=== PATIENT | male | born 1965 | race Caucasian/White ===

== ENCOUNTER 2020-08-30 09:39 | Day surgery (SDC) | payer OTHER, SELFPAY ==
[2020-08-18 07:38] VITALS: BMI 29.2
[2020-08-30 09:59] VITALS: BP 136/92; PULSE 90; RESP 16; TEMP 37.2; O2SAT 99; BMI 29.1
[2020-08-30] MEDS: Lactated Ringers 1,000 ML 100 ML IV (10:14)
--- NOTE | 2020-08-30 10:24 | PCM.HP.BLA ---
Problem List (1) Acid reflux Status: Acute Qualifiers: (2) Constipation Status: Acute Qualifiers: History and Physical Date of Admission: 08/30/20 Intake Visit Reasons: INGUINAL HERNIA Nurse Anesthesia Program Director Required: No Is patient in pain?: No (tenderness- Left groin) Allergies No Known Allergies Allergy (Verified 08/18/20 07:40) Medications Lisinopril [Zestril] 40 mg PO DAILY 07/10/15 [History Confirmed 08/18/20] Omeprazole [Prilosec] 20 mg PO DAILY 07/10/15 [History Confirmed 08/18/20] fenofibrate 54 mg tablet 54 mg PO DAILY tab 08/18/20 [History Confirmed 08/18/20] rosuvastatin 10 mg tablet 10 mg PO DAILY tab 08/18/20 [History Confirmed 08/18/20] PFSH Medical History (Updated 08/18/20 @ 07:[address] Reggie Saldaña MD) Left inguinal hernia (Acute) Acid reflux (Acute) Constipation (Acute) Hypertension (Chronic) Arthritis (Acute) Back problem (Acute) Surgical History (Updated 08/18/20 @ 07:37 by Nel Blair) Hx of lithotripsy (Acute) Hx of appendectomy (Acute) Family History (Updated 08/18/20 @ 07:38 by Nel Blair) Mother Breast cancer Social History (Updated 08/18/20 @ 07:[address] Reggie Saldaña MD) Smoking Status: Unknown if ever smoked second hand exposure: No alcohol intake: current alcohol intake frequency: holidays/special occasions only substance use type: does not use caffeine: Yes HPI HPI HPI: PRITESH MORENO, is a 55 M who presents to the office today for surgical consultation regarding a left inguinal hernia. The patient is referred by his primary care physician Dr. Luis Bolton and a written copy my surgical consult recommendations will return to him. He noticed a bulge in the left groin mid summer. He does do heavy lifting and straining. He is always been able to reduce the area. He does have chronic reflux disease. He thinks he had an upper endoscopy 14 years ago. He has been on proton pump inhibitor for an extensive period of time at least 7 years perhaps as long as 10 years. He thinks he had a Cologuard test year and a half ago that was negative. He has never had a colonoscopy. He denies family history of colon cancer. He denies nocturia. He has had some intermittent constipation. No bright red blood per rectum or melena. No unexpected weight loss. He has been associated with some people of had COVID-19 but he states that he has been from them and he has not had it himself. He denies fever or chills or cough or shortness of breath or DVT He has had previous abdominal surgery was which is a laparoscopic appendectomy for severe appendicitis but he does not believe it was ruptured. He thinks that was about 3 years ago. HPI HPI HPI: PRITESH MORENO, is a 55 M who presents to the office today for ROS General General: No weight change, appetite, fatigue, colon cancer or breast cancer HEENT HEENT: No difficulty swallowing, eye injury, eye surgery, swollen glands or hoarseness Endo Endocrine: No thyroid disease, diabetes mellitus, thyroid cancer, Hair loss, heat intolerance or cold intolerance Skin Skin: Yes changing moles; no rash Musc Musculoskeletal: Yes back problems and arthritis; no rheumatoid arthritis, gout or joint pain Cardio Cardiovascular: Yes high blood pressure; no murmur, pacemaker, heart disease, atrial fibrillation, heart attack, heart stent, palpitations, shortness of breat with exertion or chest pain Psych Psychiatric: No depression, anxiety or hearing voices Resp Respiratory: No shortness of breath, No sleep apnea, No cough, No COPD, No asthma, No emphysema, No wheezing Gastro Gastrointestinal: No abdominal pain, No nausea or vomiting, No diarrhea, Yes constipation, No blood in stool, Yes acid reflux, No hemorrhoids, No ulcers, No gallbladder problem, No black,tarry stools Gil Hematologic: No blood thinners, No blood disorders, No bleeding, No anemia, No blood clots Exam Const General: cooperative, healthy appearing, comfortable Nutritional Appearance: average body habitus Orientation: alert, awake [facility] Head: normal to inspection Eyes General: appearance normal, both eyes and all related structures Chest Chest palpation & inspection: normal inspection of the chest Resp Effort & Inspection: normal respiratory effort Auscultation: clear to auscultation bilaterally Cardio Rate: regular rate Rhythm: regular rhythm Heart Sounds: no murmurs GI Palpation: soft, no hepatosplenomegaly Other: Well-healed umbilical incision. No hepatosplenomegaly. Normal bowel sounds. Other: Testicles are descended bilaterally. Very slight given the right groin. Obvious left inguinal hernia but still reducible. Musc Cervical Spine: normal cervical lordosis Skin General: no rashes or lesions noted Neuro Cognition: normal cognition Extrem General: no calf tenderness Psych Affect: normal affect Assessment & Plan Problems 1. Left inguinal hernia K40.90 2. Gastroesophageal reflux disease, unspecified whether esophagitis present K21.9 3. Constipation, unspecified constipation type K59.00 Plan The patient has had chronic gastroesophageal reflux disease and is on chronic omeprazole therapy. He has never had a screening colonoscopy. I suggest to him that we consider a esophagogastroduodenoscopy with possible biopsy looking for potential for Gill's esophagus. The patient also has interest in coming off his proton pump inhibitor. He is aware that there is a surgical procedure to assist with this and I did clarify for him that that is a procedure that I can accomplish for him laparoscopically but that it would require some additional testing. I also recommend to him at least 1 screening colonoscopy with possible biopsy or polypectomy as indicated. He does believe that he would like to pursue that endoscopic testing. I discussed with him surgical treatment options for his left inguinal hernia. He is in good health and does vigorous work. I propose for him a laparoscopic left inguinal hernia repair with mesh. I have described the technique, benefit, risk and alternatives. He has had an opportunity to ask and have questions answered. He is comfortable is had an opportunity to ask and have questions answered. We will schedule and proceed at his discretion. He is well aware of COVID-19. He is aware that currently the [facility] still permitting outpatient procedures. I very much appreciate the kind opportunity of assisting with her surgical care Copy: Dr. Luis Saldaña M.D., F.A.C.S. Coding Level of Care Code 63918 Diagnoses Left inguinal hernia K40.90 Gastroesophageal reflux disease, unspecified whether esophagitis present K21.9 ??Esophagitis presence: esophagitis presence not specified Constipation, unspecified constipation type K59.00 ??Constipation type: unspecified constipation type I have re-examined the patient. There are no clinical changes since date of exam. Procedure Criteria Procedure Type: Elective COVID Risk Discussion: The surgeon/proceduralist and patient have discussed in detail the risk of exposure to and/or potential harm posed by the COVID-19 virus with having a surgery/procedure at this time versus the risk of delaying the surgery/procedure. It is not possible to know either the risk of delaying the surgery or procedure or chance of getting an infection with perfect accuracy, but a joint decision was made between the patient and the surgeon/proceduralist to proceed at this time with the scheduled surgery/procedure as indicated on the consent form.
--- NOTE | 2020-08-30 11:00 | COLBX_PTH ---
PATIENT: PRITESH MORENO LOC: EN U#:[id number] AGE/SX: 55/M ROOM: RE08/30/[address]: Dr. Reggie Saldaña MD : 1965 BED: DIS: 08/30/2020 SPEC #: [id number] RECD: 08/30/20 11:41 STATUS: DARIUS SANAM #: [id number] CHANELL: 08/30/20 11:[address]: Reggie Saldaña DEPT: SURGICAL PATHOLOGY RECD BY: Darrel Mcclain ENTERED: 08/30/20 12:14 SP TYPE: COLON BX OTHR DR: Dr. Luis Bolton MD Tissues: A - Gastric mucous membrane B - Gastric mucous membrane C - Gastric mucous membrane D - Esophagus, NOS Procedures: Special Stain Group II Surgery Specimen Level IV Alcian Blue/PAS (control) HEADER OPERATION: Colonoscopy, EGD ([facility] [place] PRE-OP DIAGNOSIS: Left inguinal hernia, GERD, esophagitis, constipation TISSUE SUBMITTED: A - Antrum biopsy for H. pylori and path, B - Gastric polyps biopsy #1, C - Gastric polyp #2, D - Distal esophagus biopsy MICROSCOPIC DIAGNOSIS A. Gastric antrum, biopsy: Chronic gastritis. See comment. B. Gastric polyp #1, biopsy: Fundic gland polyp. C. Gastric polyp #2, biopsy: Fundic gland polyp. D. Distal esophagus, biopsy: Gastroesophageal junctional mucosa with mild chronic inflammation. No evidence of intestinal metaplasia. See comment. AM:javier 08/31/20 COMMENT A. The results of immunohistochemistry for Helicobacter pylori will be reported separately ([id number]). D. Alcian blue/PAS stain with matched control supports the above diagnosis. MICROSCOPIC DESCRIPTION Slides are reviewed. GROSS DESCRIPTION A - Received in fixative is one container labeled with the patient's name and designated antrum biopsy. The specimen consists of two irregular fragments of light cota soft tissue that in aggregate measure 0.5 x 0.5 x 0.1 cm. The specimen is totally submitted in one cassette. B - Received in fixative is one container labeled with the patient's name and designated gastric polyp biopsy. The specimen consists of one irregular fragment of light cota soft tissue that measures 0.5 x 0.5 x 0.1 cm. The specimen is totally submitted in one cassette. C - Received in fixative is one container labeled with the patient's name and designated gastric polyp #2. The specimen consists of one irregular fragment of light cota soft tissue that measures 0.5 x 0.3 x 0.1 cm. The specimen is totally submitted in one cassette. D - Received in fixative is one container labeled with the patient's name and designated distal esophagus biopsy. The specimen consists of multiple irregular fragments of light cota soft tissue that in aggregate measure 1 x 0.2 x 0.1 cm. The specimen is totally submitted in one cassette. / AM:javier 08/30/20 TC:3 CPT: 33856 x4, 72206
--- NOTE | 2020-08-30 11:00 | IMM_PTH ---
PATIENT: PRITESH MORENO LOC: EN U#:[id number] AGE/SX: 55/M ROOM: RE08/30/[address]: Dr. Reggie Saldaña MD : 1965 BED: DIS: 08/30/2020 SPEC #: [id number] RECD: 08/30/20 12:34 STATUS: DARIUS REChucho #: [id number] CHANELL: 08/30/20 11:[address]: Reggie Saldaña DEPT: IMMUNOHISTOCHEMISTRY RECD BY: Kellie Bonilla ENTERED: 08/30/20 12:34 SP TYPE: IMMUNO OTHR DR: Dr. Luis Bolton MD Tissues: A - Stomach, NOS Procedures: H Pylori (initial) PHYSICIAN & INSTITUTION [place] [id number] SPECIMEN INFORMATION: Tissue Source: A - Antrum biopsy Clinical Info: Left inguinal hernia; GERD; esophagitis; constipation Specimen Number: [id number] CPT code: 85640 METHODOLOGY: Deparaffinized sections of prefer/formalin-fixed tissue or PAP/DQ stained slides are incubated with monoclonal/polyclonal antibodies/oligonucleotide probes. Localization is made via biotin free immunoperoxidase method. Appropriate controls are performed and reacted as expected. Results on target cell population are indicated in the following table: RESULTS: ANTIBODY / CLONE RESULT Block A H Pylori (polyclonal) negative These tests were developed and their performance characteristics determined by [facility]. They may not have been cleared or approved by the U.S. Food and Drug Administration. The FDA has determined that such clearance or approval is not necessary. INTERPRETATION: A. Antrum, biopsy: Negative for Helicobacter pylori organisms. AM:javier 08/31/20
[2020-08-30 11:33] VITALS: BP 133/103; BP 163/95; PULSE 89; RESP 16; TEMP 36.1; O2SAT 97
--- NOTE | 2020-08-30 11:38 | OP.EGD_ITS ---
Patient Name: Gregorio Ayon Procedure Date: 08/30/2020 11:01 AM Date of : 1965 Age: 55 Procedure: Upper GI endoscopy Indications: Suspected gastro-esophageal reflux disease Providers: Reggie Saldaña MD Referring MD: Luis Bolton Medicines: See the Anesthesia note for documentation of the administered medications Complications: No immediate complications. Procedure: Pre-Anesthesia Assessment: - Prior to the procedure, a History and Physical was performed, and patient medications and allergies were reviewed. The patient's tolerance of previous anesthesia was also reviewed. The risks and benefits of the procedure and the sedation options and risks were discussed with the patient. All questions were answered, and informed consent was obtained. Prior Anticoagulants: The patient has taken no previous anticoagulant or antiplatelet agents. ASA Grade Assessment: II - A patient with mild systemic disease. After reviewing the risks and benefits, the patient was deemed in satisfactory condition to undergo the procedure. After obtaining informed consent, the endoscope was passed under direct vision. Throughout the procedure, the patient's blood pressure, pulse, and oxygen saturations were monitored continuously. The Endoscope was introduced through the mouth, and advanced to the second part of duodenum. The upper GI endoscopy was accomplished without difficulty. The patient tolerated the procedure well. Scope In: 11:10:48 AM Scope Out: 11:17:55 AM Total Procedure Duration Time 0 hours 7 minutes 7 seconds Findings: A small hiatal hernia was present. LA Grade A (one or more mucosal breaks less than 5 mm, not extending between tops of 2 mucosal folds) esophagitis with no bleeding was found 41 cm from the incisors. Biopsies were taken with a cold forceps for histology. Multiple pedunculated and sessile polyps with no bleeding and no stigmata of recent bleeding were found in the stomach. The polyp was removed with a cold biopsy forceps. Resection was complete, but the polyp tissue was only partially retrieved. Diffuse mildly erythematous mucosa without bleeding was found in the gastric antrum. Biopsies were taken with a cold forceps for histology. The examined duodenum was normal. Impression: - Small hiatal hernia. - LA Grade A reflux esophagitis. Biopsied. - Multiple gastric polyps, multiple sizes, some larger than normal. Two biopsied, One pedunculated and one slightly inflamed. - Erythematous mucosa in the antrum. Biopsied. - Normal examined duodenum. Recommendation: - Discharge patient to home. - Resume previous diet. - Continue present medications. - Telephone my office for pathology results in 1 week. Procedure Code(s): --- Professional --- 76359, Esophagogastroduodenoscopy, flexible, transoral; with biopsy, single or multiple Diagnosis Code(s): --- Professional --- K44.9, Diaphragmatic hernia without obstruction or gangrene K21.0, Gastro-esophageal reflux disease with esophagitis K31.7, Polyp of stomach and duodenum K31.89, Other diseases of stomach and duodenum CPT copyright 2017 [employer]. All rights reserved. The codes documented in this report are preliminary and upon trim carpenter review may be revised to meet current compliance requirements. Reggie Saldaña MD 08/30/2020 11:37:51 AM This report has been signed electronically. Number of Addenda: 0 Note Initiated On: 08/30/2020 11:01 AM
--- NOTE | 2020-08-30 11:38 | OP.CCLET_ITS ---
08/30/2020 Luis Bolton Re : Upper GI endoscopy procedure for Gregorio Ayon Dear Hoang This procedure was performed on Sunday, August 30, 2020. My impressions and recommendations are as follows: Impressions : - Small hiatal hernia. - LA Grade A reflux esophagitis. Biopsied. - Multiple gastric polyps, multiple sizes, some larger than normal. Two biopsied, One pedunculated and one slightly inflamed. - Erythematous mucosa in the antrum. Biopsied. - Normal examined duodenum. Recommendations : - Discharge patient to home. - Resume previous diet. - Continue present medications. - Telephone my office for pathology results in 1 week. My findings are described in the full procedure note, which is enclosed. If I can be of further assistance, please feel free to contact me at Doctor phone number(s): Work: . Sincerely, Reggie Saldaña MD 08/30/2020 11:37:51 AM This report has been signed electronically.
[2020-08-30 11:40] VITALS: BP 107/64; BP 163/95; PULSE 79; RESP 14; O2SAT 98
--- NOTE | 2020-08-30 11:40 | OP.COLON_ITS ---
Patient Name: Gregorio Ayon Procedure Date: 08/30/2020 11:18 AM Date of : 1965 Age: 55 Procedure: Colonoscopy Indications: Constipation Providers: Reggie Saldaña MD Referring MD: Luis Bolton Medicines: See the Anesthesia note for documentation of the administered medications Patient Profile: Last Colonoscopy: none. The patient's first colonoscopy is today. Complications: No immediate complications. Procedure: Pre-Anesthesia Assessment: - Prior to the procedure, a History and Physical was performed, and patient medications and allergies were reviewed. The patient's tolerance of previous anesthesia was also reviewed. The risks and benefits of the procedure and the sedation options and risks were discussed with the patient. All questions were answered, and informed consent was obtained. Prior Anticoagulants: The patient has taken no previous anticoagulant or antiplatelet agents. ASA Grade Assessment: II - A patient with mild systemic disease. After reviewing the risks and benefits, the patient was deemed in satisfactory condition to undergo the procedure. After I obtained informed consent, the scope was passed under direct vision. Throughout the procedure, the patient's blood pressure, pulse, and oxygen saturations were monitored continuously. The adult colonoscope was introduced through the anus and advanced to the cecum, identified by appendiceal orifice and ileocecal valve. The colonoscopy was performed without difficulty. The patient tolerated the procedure well. The quality of the bowel preparation was good. The ileocecal valve and the appendiceal orifice were photographed. Scope In: 11:19:52 AM Scope Withdrawal Time 0 hours 6 minutes 5 seconds Scope Out: 11:28:35 AM Total Procedure Duration Time 0 hours 8 minutes 43 seconds Findings: The digital rectal exam findings include non-thrombosed internal hemorrhoids, internal hemorrhoids that prolapse with straining, but spontaneously regress to the resting position (Grade II) and enlarged prostate. A few diverticula were found in the sigmoid colon. The exam was otherwise without abnormality. Impression: - Non-thrombosed internal hemorrhoids, internal hemorrhoids that prolapse with straining, but spontaneously regress to the resting position (Grade II) and enlarged prostate found on digital rectal exam. - Diverticulosis in the sigmoid colon. - The examination was otherwise normal. - No specimens collected. Recommendation: - Discharge patient to home. - Resume previous diet. - Continue present medications. - Repeat colonoscopy in 10 years for screening purposes. Procedure Code(s): --- Professional --- 80370, Colonoscopy, flexible; diagnostic, including collection of specimen(s) by brushing or washing, when performed (separate procedure) Diagnosis Code(s): --- Professional --- K64.1, Second degree hemorrhoids K59.00, Constipation, unspecified N40.0, Benign prostatic hyperplasia without lower urinary tract symptoms K57.30, Diverticulosis of large intestine without perforation or abscess without bleeding CPT copyright 2017 [employer]. All rights reserved. The codes documented in this report are preliminary and upon small animal veterinarian review may be revised to meet current compliance requirements. Reggie Saldaña MD 08/30/2020 11:40:13 AM This report has been signed electronically. Number of Addenda: 0 Note Initiated On: 08/30/2020 11:18 AM
--- NOTE | 2020-08-30 11:40 | OP.CCLET_ITS ---
08/30/2020 Luis Bolton Re : Colonoscopy procedure for Gregorio Ayon Dear Hoang This procedure was performed on Sunday, August 30, 2020. My impressions and recommendations are as follows: Impressions : - Non-thrombosed internal hemorrhoids, internal hemorrhoids that prolapse with straining, but spontaneously regress to the resting position (Grade II) and enlarged prostate found on digital rectal exam. - Diverticulosis in the sigmoid colon. - The examination was otherwise normal. - No specimens collected. Recommendations : - Discharge patient to home. - Resume previous diet. - Continue present medications. - Repeat colonoscopy in 10 years for screening purposes. My findings are described in the full procedure note, which is enclosed. If I can be of further assistance, please feel free to contact me at Doctor phone number(s): Work: . Sincerely, Reggie Saldaña MD 08/30/2020 11:40:13 AM This report has been signed electronically.
[2020-08-30 11:45] VITALS: BP 103/69; BP 163/95; PULSE 81; RESP 14; O2SAT 99
[2020-08-30 11:46] VITALS: BP 110/73; BP 163/95; PULSE 78; RESP 16; TEMP 36.2; O2SAT 98
[2020-08-30 11:58] VITALS: BP 163/95
== END 2020-08-30 12:29 | disposition home or self-care (01) ==
LOC: EN 09:39 → AC 09:40
PROVIDERS: PCP Family Medicine; Referring Provider Family Medicine; Visit Provider Surgery
PROC: 0DJD8ZZ Inspection of Lower Intestinal Tract, Via Natural or Artificial Opening Endoscopic (ICD-10-PCS; CPT 45378; principal; 2020-08-30 10:55)
DX: K59.00 Constipation, unspecified (principal); Z20.828 Contact with and (suspected) exposure to other viral communicable diseases; I10 Essential (primary) hypertension; M19.90 Unspecified osteoarthritis, unspecified site; Z79.899 Other long term (current) drug therapy; K40.90 Unilateral inguinal hernia, without obstruction or gangrene, not specified as recurrent; K44.9 Diaphragmatic hernia without obstruction or gangrene; K21.00 Gastro-esophageal reflux disease with esophagitis, without bleeding; K31.7 Polyp of stomach and duodenum; N40.0 Benign prostatic hyperplasia without lower urinary tract symptoms; K57.30 Diverticulosis of large intestine without perforation or abscess without bleeding; K64.1 Second degree hemorrhoids; K29.50 Unspecified chronic gastritis without bleeding
CPT/HCPCS: 43239; 45378; 87426; 88305; 88313; 88342; C9803; J7120

== ENCOUNTER 2020-09-07 07:45 | Day surgery (SDC) | payer OTHER, SELFPAY ==
--- NOTE | 2020-09-06 16:22 | EKG12_ITS ---
Test Reason : PRE-OP Blood Pressure : / mmHG Vent. Rate : 080 BPM Atrial Rate : 080 BPM P-R Int : 158 ms QRS Dur : 102 ms QT Int : 390 ms P-R-T Axes : 036 029 042 degrees QTc Int : 449 ms Normal sinus rhythm Normal ECG Confirmed by RAMY LOPEZ, KAYE ([id number]), associate entertainment editor ARMINDA SZYMANSKI ([id number]) on 09/07/2020 9:26:37 AM Referred By: Reggie Saldaña Confirmed By:KAYE MCCANN MD
[2020-09-06 17:17] LABS: Hematocrit 43.3 % (40-54); Hemoglobin 14.8 g/dL (13.0-16.5); Mean Corp Hgb Conc 34.2 g/dL (32-36); Mean Corpuscular Volume 93.7 fL (80-94); Mean Platelet Vol. 10.2 fl (6.2-12.0); Platelet Count 215 K/mm3 (150-450); RBC Distribution Width CV 12.2 % (11.6-14.6); RBC Distribution Width SD 41.8 fl (35.1-43.9); Red Blood Count 4.62 M/mm3 (4.6-6.2); White Blood Count 7.8 K/mm3 (4.4-11.0)
[2020-09-06 17:38] LABS: BUN 14 mg/dL (7-18); BUN/Creat Ratio 16.1 RATIO (10-20); Calcium,Total 9.4 mg/dL (8.5-10.1); Chloride 105 mmol/L (98-107); Creatinine, Serum 0.87 mg/dL (0.70-1.30); EST Glomerular Filtration Rate 96 mL/min (>60); Est Glom Filt Rate - Afr Amer 116 mL/min (>60); Glucose 86 mg/dL (74-106); Potassium 3.6 mmol/L (3.5-5.1); Sodium Level 141 mmol/L (136-145)
[2020-09-06 17:39] LABS: Anion Gap 7 (5-15)
[2020-09-07] VITALS (8 sets, daily range): BP systolic 123–149; BP diastolic 73–96; PULSE 73–87; RESP 16; TEMP 36.2–36.6; O2SAT 98–100; BMI 29.0
[2020-09-07] MEDS: Lactated Ringers 1,000 ML 10 ML IV (08:27)
--- NOTE | 2020-09-07 09:40 | PCM.HP.BLA ---
Problem List (1) Left inguinal hernia Status: Acute History and Physical Date of Admission: 09/07/20 Problem List (1) Acid reflux Status: Acute Qualifiers: (2) Constipation Status: Acute Qualifiers: History and Physical Date of Admission: 08/30/20 Intake Visit Reasons: INGUINAL HERNIA Radioactivity Technician Required: No Is patient in pain?: No (tenderness- Left groin) Allergies No Known Allergies Allergy (Verified 08/18/20 07:40) Medications Lisinopril [Zestril] 40 mg PO DAILY 07/10/15 [History Confirmed 08/18/20] Omeprazole [Prilosec] 20 mg PO DAILY 07/10/15 [History Confirmed 08/18/20] fenofibrate 54 mg tablet 54 mg PO DAILY tab 08/18/20 [History Confirmed 08/18/20] rosuvastatin 10 mg tablet 10 mg PO DAILY tab 08/18/20 [History Confirmed 08/18/20] PFSH Medical History (Updated 08/18/20 @ 07:[address] Reggie Saldaña MD) Left inguinal hernia (Acute) Acid reflux (Acute) Constipation (Acute) Hypertension (Chronic) Arthritis (Acute) Back problem (Acute) Surgical History (Updated 08/18/20 @ 07:37 by Nel Blair) Hx of lithotripsy (Acute) Hx of appendectomy (Acute) Family History (Updated 08/18/20 @ 07:38 by Nel Blair) Mother Breast cancer Social History (Updated 08/18/20 @ 07:[address] Reggie Saldaña MD) Smoking Status: Unknown if ever smoked second hand exposure: No alcohol intake: current alcohol intake frequency: holidays/special occasions only substance use type: does not use caffeine: Yes HPI HPI HPI: PRITESH MORENO, is a 55 M who presents to the office today for surgical consultation regarding a left inguinal hernia. The patient is referred by his primary care physician Dr. Luis Bolton and a written copy my surgical consult recommendations will return to him. He noticed a bulge in the left groin mid summer. He does do heavy lifting and straining. He is always been able to reduce the area. He does have chronic reflux disease. He thinks he had an upper endoscopy 14 years ago. He has been on proton pump inhibitor for an extensive period of time at least 7 years perhaps as long as 10 years. He thinks he had a Cologuard test year and a half ago that was negative. He has never had a colonoscopy. He denies family history of colon cancer. He denies nocturia. He has had some intermittent constipation. No bright red blood per rectum or melena. No unexpected weight loss. He has been associated with some people of had COVID-19 but he states that he has been from them and he has not had it himself. He denies fever or chills or cough or shortness of breath or DVT He has had previous abdominal surgery was which is a laparoscopic appendectomy for severe appendicitis but he does not believe it was ruptured. He thinks that was about 3 years ago. HPI HPI HPI: PRITESH MORENO, is a 55 M who presents to the office today for ROS General General: No weight change, appetite, fatigue, colon cancer or breast cancer HEENT HEENT: No difficulty swallowing, eye injury, eye surgery, swollen glands or hoarseness Endo Endocrine: No thyroid disease, diabetes mellitus, thyroid cancer, Hair loss, heat intolerance or cold intolerance Skin Skin: Yes changing moles; no rash Musc Musculoskeletal: Yes back problems and arthritis; no rheumatoid arthritis, gout or joint pain Cardio Cardiovascular: Yes high blood pressure; no murmur, pacemaker, heart disease, atrial fibrillation, heart attack, heart stent, palpitations, shortness of breat with exertion or chest pain Psych Psychiatric: No depression, anxiety or hearing voices Resp Respiratory: No shortness of breath, No sleep apnea, No cough, No COPD, No asthma, No emphysema, No wheezing Gastro Gastrointestinal: No abdominal pain, No nausea or vomiting, No diarrhea, Yes constipation, No blood in stool, Yes acid reflux, No hemorrhoids, No ulcers, No gallbladder problem, No black,tarry stools Gil Hematologic: No blood thinners, No blood disorders, No bleeding, No anemia, No blood clots Exam Const General: cooperative, healthy appearing, comfortable Nutritional Appearance: average body habitus Orientation: alert, awake [facility] Head: normal to inspection Eyes General: appearance normal, both eyes and all related structures Chest Chest palpation & inspection: normal inspection of the chest Resp Effort & Inspection: normal respiratory effort Auscultation: clear to auscultation bilaterally Cardio Rate: regular rate Rhythm: regular rhythm Heart Sounds: no murmurs GI Palpation: soft, no hepatosplenomegaly Other: Well-healed umbilical incision. No hepatosplenomegaly. Normal bowel sounds. Other: Testicles are descended bilaterally. Very slight given the right groin. Obvious left inguinal hernia but still reducible. Musc Cervical Spine: normal cervical lordosis Skin General: no rashes or lesions noted Neuro Cognition: normal cognition Extrem General: no calf tenderness Psych Affect: normal affect Assessment & Plan Problems 1. Left inguinal hernia K40.90 2. Gastroesophageal reflux disease, unspecified whether esophagitis present K21.9 3. Constipation, unspecified constipation type K59.00 Plan The patient has had chronic gastroesophageal reflux disease and is on chronic omeprazole therapy. He has never had a screening colonoscopy. I suggest to him that we consider a esophagogastroduodenoscopy with possible biopsy looking for potential for Gill's esophagus. The patient also has interest in coming off his proton pump inhibitor. He is aware that there is a surgical procedure to assist with this and I did clarify for him that that is a procedure that I can accomplish for him laparoscopically but that it would require some additional testing. I also recommend to him at least 1 screening colonoscopy with possible biopsy or polypectomy as indicated. He does believe that he would like to pursue that endoscopic testing. I discussed with him surgical treatment options for his left inguinal hernia. He is in good health and does vigorous work. I propose for him a laparoscopic left inguinal hernia repair with mesh. I have described the technique, benefit, risk and alternatives. He has had an opportunity to ask and have questions answered. He is comfortable is had an opportunity to ask and have questions answered. We will schedule and proceed at his discretion. He is well aware of COVID-19. He is aware that currently the [facility] still permitting outpatient procedures. I very much appreciate the kind opportunity of assisting with her surgical care Copy: Dr. Luis Saldaña M.D., F.A.C.S. Coding Level of Care Code 88559 Diagnoses Left inguinal hernia K40.90 Gastroesophageal reflux disease, unspecified whether esophagitis present K21.9 ??Esophagitis presence: esophagitis presence not specified Constipation, unspecified constipation type K59.00 ??Constipation type: unspecified constipation type Plan to proceed today with a laparoscopic left inguinal herniorrhaphy with mesh. The patient is aware of the technique, benefit, risk, alternatives. He has had an opportunity to ask and have questions answered. We will proceed as noted. Reggie Saldaña M.D., F.A.C.S.
--- NOTE | 2020-09-07 10:30 | DCINST_ITS ---
Discharge Diet: Light diet - advance as tolerated - if you have questions about your diet instructions, please talk to you doctor. Discharge Activity: May Not Drive - for 3-5 days or while taking narcotic pain medicine. May shower in (days): 1 Lifting Restrictions: 10 pounds Call your doctor if your incision/area has: Continuous Slow Oozing, Sudden Increased Bleeding, Increased Pain/ Swelling, Increased Redness, Foul Smelling Discharge Call your doctor if you observe: Fever of 101 or Higher Suture Line Care: Avoid Pulling/Pushing, Avoid Pinching/Bending Additional Dressing/Incision Instructions:: Change or remove dressing in 4 days. Leave steri-strips in place for 1 week. Allergies/Adverse Reactions: Allergies No Known Allergies Allergy (Verified 09/07/20 08:22) Medications to take at Discharge Lisinopril [Zestril] 40 mg PO DAILY 07/10/15 Omeprazole [Prilosec] 20 mg PO DAILY 07/10/15 fenofibrate 54 mg tablet 54 mg PO DAILY tab 08/18/20 rosuvastatin 10 mg tablet 10 mg PO DAILY tab 08/18/20 Hydrocodone Bitart/Apap 5-325 [[place] 5MG-325MG] 1 tablet PO Q6H PRN PRN 2 Days #8 tablet 09/07/20 The following prescriptions were given: Hydrocodone Bitart/Apap 5-325 [[place] 5MG-325MG] 1 tablet PO Q6H PRN PRN 2 Days #8 tablet PRN Reason: Pain Transmission Status: Sent to [facility] Primary Care Physician: Luis Bolton MD [Primary Care Provider] - Test Results: Test results from this visit will be discussed in further detail at your follow- up appointment, if applicable. Please Follow Up With: Reggie Saldaña MD - [phone] When: Call for appt. may be phone, virtual, or on-site. Approx. 10 days
[2020-09-07] MEDS: Cefazolin 2 GM in 0.9% Normal Saline 100 ML IV (10:36)
--- NOTE | 2020-09-07 11:12 | OP.PCM_ITS ---
Problem List (1) Left inguinal hernia Status: Acute Report of Operation Date of Procedure: 09/07/20 Pre-Operative Diagnosis: Symptomatic left inguinal hernia Post-Operative Diagnosis: Symptomatic direct and indirect left inguinal hernias Surgery/Procedure Performed:: Laparoscopic left inguinal herniorrhaphy with Bard 3D max extra-large mesh. Lot number [id number]. Reference #[id number]. Expiry date 09/29/2024. Secure strap Lot number [id number] Description of Surgical Findings:: Timeout and informed consent was obtained. 55-year-old gentleman was taken to the operating place upon the table underwent general endotracheal intubation and anesthesia. The abdomen sterilely prepped and draped. Ancef 2 g were given intravenously. 0.5% Marcaine was used as a local anesthetic. Local was in stilled at the umbilicus sharp dissection made vertically through previous infraumbilical vertical incision sharp dissection carried down through the subtenons tissue the fascia was sharply incised and I got to the posterior peritoneum a varies needle inserted the abdomen was inflated CO2 to a pressure of 10 mmHg pressure 10-minute trocar inserted and the laparoscope inserted no evidence or trocar injuries 5 mm ports were placed in the right and left lower quadrants under direct visitation. A ileal inguinal nerve block on the left was performed under laparoscopic visualization. The peritoneum superior lateral to the internal ring was incised carried medially the peritoneum was completely dissected free the direct indirect and femoral area completely inspected. There was evidence of a indirect inguinal hernia and a direct left inguinal hernia. A extra-large Bard 3D max mesh was placed was to cover the defect area. It nicely was seated in position with excellent coverage of the defects. It was secured in place superiorly and medially with secure strap. Very good positioning was achieved. The peritoneum was then approximated to itself using secure strap and hemolock clips. Complete obliteration to the mesh was achieved. The pneumoperitoneum was allowed to deflate through an antiviral valve. Trochars were removed. The fascia at the umbilicus was approximated with 2-0 Vi cryl [id number] suture. Skin edges approximated with interrupted 4-0 Monocryl subdermal stitches. Steri-Strips Telfa OpSite dressings applied. Sponge and instrument and needle counts were reported to surgically correct. Specimens none. Drains none. Blood loss minimal. Reggie Saldaña M.D., F.A.C.S. Type of Anesthesia:: General Anesthesiologist: Sola Lo
[2020-09-07] MEDS: Bupivacaine Mpf 0.5% 30 ML VIAL (11:17)
== END 2020-09-07 16:55 | disposition home or self-care (01) ==
LOC: SDC 07:45 → AC 07:46
PROVIDERS: PCP Family Medicine; Referring Provider Surgery; Visit Provider Surgery
PROC: (CPT 49650; principal; 2020-09-07 09:45)
DX: K40.90 Unilateral inguinal hernia, without obstruction or gangrene, not specified as recurrent (principal); K21.9 Gastro-esophageal reflux disease without esophagitis; K59.00 Constipation, unspecified; Z79.899 Other long term (current) drug therapy; I10 Essential (primary) hypertension; M19.90 Unspecified osteoarthritis, unspecified site
CPT/HCPCS: 49650; 36415; 80048; 85027; 93005; J7120; C1781; J2405

== ENCOUNTER → 2021-03-03 07:59 | Outpatient (CLI) | payer OTHER, SELFPAY ==
--- NOTE | 2021-03-03 08:05 | RAD_ITS ---
STUDY: X-RAY - ESOPHAGUS (BARIUM SWALLOW) WITH FLUOROSCOPY REASON FOR EXAM: Male, 56 years old. 3 week history of dysphagia with cough. TECHNIQUE: 15 view(s) of the esophagus were obtained following swallowing of barium. FLUOROSCOPY TIME (if supplied): (52 seconds.) minutes/seconds COMPARISON: None. FINDINGS: There is no demonstrated esophageal foreign body. There is no demonstrated stricture or mucosal abnormality. Normal gastroesophageal junction, without a demonstrated hiatal hernia. The patient ingested a 12 mm tablet of barium without any difficulty. There is atherosclerotic calcification of the aortic arch with tortuosity of the descending aorta. Normal visualized pulmonary parenchyma. Normal visualized osseous structures of the thorax. RAD/Esophagus Dual Contrast IMPRESSION: Normal plain film x-ray examination (barium swallow) of the esophagus. Electronically Signed: Woody Dumas MD at 9:35 EDT , Service support ,
== END ==
PROVIDERS: PCP Family Medicine; Referring Provider Otolaryngology; Visit Provider Otolaryngology
DX: R13.10 Dysphagia, unspecified (principal)
CPT/HCPCS: 74221

== ENCOUNTER → 2021-08-29 13:29 | Outpatient (CLI) | payer OTHER, SELFPAY | PROVIDERS: PCP Family Medicine; Referring Provider Physician Assistant Surgical; Visit Provider Physician Assistant Surgical | DX: Z11.52 Encounter for screening for COVID-19 (principal) | CPT/HCPCS: 87635; U0005; U0003 ==

== ENCOUNTER 2022-12-03 16:30 | Emergency (ER) | payer OTHER, SELFPAY ==
[2022-12-03 16:31] VITALS: BP 167/101; PULSE 103; RESP 14; TEMP 36.6; O2SAT 97; BMI 29.8
--- NOTE | 2022-12-03 17:47 | CT_ITS ---
STUDY: CT BRAIN WITHOUT CONTRAST REASON FOR EXAM: Male, 57 years old. headache RADIATION DOSAGE (If Supplied By Facility): CTDIvol = ( 44.99 ) mGy, DLP = ( 897.35 ) mGycm TECHNIQUE: Transaxial CT imaging of the brain was performed without administration of intravenous contrast material. Individualized dose optimization techniques were used for this CT. COMPARISON: No relevant priors. FINDINGS: Normal soft tissue structures. Normal calvarium. Normal size ventricles and extra-axial spaces for the patient''s age. There are areas of decreased attenuation within the white matter tracts of the supratentorial brain, consistent with microvascular disease changes. There is no intracranial hemorrhage. There are no findings of an acute ischemic infarction. Normal visualized paranasal sinuses. CT/Brain/Head without Contrast IMPRESSION: No acute findings. Mild microvascular ischemic changes. Electronically Signed: Mela Cueto MD at 19:24 EDT Reading Location ID and State: [id number] / Tel , Service support ,
--- NOTE | 2022-12-03 17:49 | EX.ED.DYSGE1 ---
HPI History of Present Illness Chief Complaint: Headache Narrative Narrative: Patient presents with a headache. He has had intermittent headaches throughout his life and these feel similar in fact he does not have a headache at this time however over the past 3 weeks he has had almost daily headaches that are somewhat rapid onset within a few minutes but not sudden onset, they self resolve within an hour. He has no neck pain or stiffness. No fevers or chills she has no confusion or vision changes she has no weakness or paresthesias or any other neurological symptoms. He did mention he is under a lot of stress. [facility] Medical History Acid reflux Arthritis Back problem Constipation Hypertension Left inguinal hernia Home Medications lisinopril 40 mg tablet 40 mg PO DAILY 07/10/15 [History Last Taken 09/07/20 06:00] omeprazole 20 mg capsule,delayed release 20 mg PO DAILY 07/10/15 [History Last Taken 09/07/20 06:00] fenofibrate 54 mg tablet 54 mg PO DAILY 08/18/20 [History Last Taken Unknown] rosuvastatin 10 mg tablet 10 mg PO DAILY 08/18/20 [History Last Taken Unknown] Allergy/AdvReac Type Severity Reaction Status Date / Time No Known Allergies Allergy Verified 12/03/22 16:31 Family History Mother Breast cancer Surgical History History of left inguinal hernia repair (~09/2020) Hx of appendectomy Hx of lithotripsy Social History Smoking Status: Never smoker second hand exposure: No alcohol intake: current alcohol intake frequency: holidays/special occasions only substance use type: does not use caffeine: Yes ROS ROS ED ROS Narrative Past medical history: Reviewed Medications: Reviewed Social history: Noncontributory Review of systems: All systems negative except as indicated General: No fever Eyes: No visual changes ENT: No upper airway congestion, normal voice Neck: No neck pain Cardiovascular: No chest pain Respiratory: No shortness of breath or cough Gastrointestinal: No abdominal pain, nausea vomiting or diarrhea Genitourinary: No dysuria Musculoskeletal: Denies myalgias no difficulty with ambulation Skin: No rash Neurological: No memory loss, confusion or any focal weakness. Headache as in HPI Psych: Recent stress and anxiety EXAM Physical Exam Narrative Exam Narrative: Physical exam General: Well nourished, Well developed, No Acute Distress Head: Normocephalic, Atraumatic Eyes: Conjunctiva not pale ENT: Moist mucous membranes Neck: Supple, Nontender, No lymphadenopathy Cardiovascular: Regular rate, Regular rhythm Respiratory: No distress, CTA bilaterally Abdomen: Soft, Nontender, Nondistended Back: Nontender, Normal Inspection. Negative for: CVA tenderness Extremities: Nontender, No edema Skin: Normal color, No rash Neurological: Alert, Normal Strength, Normal Sensation Psychological: Somewhat sad affect. No suicidal ideations Const Vital Signs: 12/03/22 16:31 12/03/22 18:30 Temperature 98 F Temperature Source Temporal Pulse Rate 103 H Respiratory Rate 14 18 Blood Pressure 167/101 H Blood Pressure Mean 123 Pulse Ox 97 Oxygen Delivery Method Room Air MDM MDM MDM Narrative Medical decision making narrative: Patient had a headache with a normal CT interpreted by me and radiologist. He has gradual onset of headaches that lasts a few hours. I thought about subarachnoid but he does not have a thunderclap headache. I thought about stroke but he has no signs or symptoms of any kind of stroke to get a full stroke work-up. He likely has tension headaches but they seem to improve with just a little Motrin therefore I do not believe he needs any outpatient prescriptions and at this time in the ED he has no headache. I will discharge him in stable condition. He does not have temporal pain therefore I do not believe an ESR is needed. Radiography Diagnostic Testing: Clinical Impression(s) from Imaging Studies Brain CT 12/03/22 17:47 IMPRESSION: No acute findings. Mild microvascular ischemic changes. Electronically Signed: Mela Cueto MD at 19:24 EDT Reading Location ID and State: [id number] / Tel , Service support , Discharge Plan Triage Chief Complaint: Headache ED Provider: Juan Miguel Pruitt Dx/Rx/DC Orders Clinical Impression: Headache, Anxiety Instructions: Understanding Headache Pain Prescriptions: No Action fenofibrate 54 mg tablet 54 mg PO DAILY rosuvastatin 10 mg tablet 10 mg PO DAILY omeprazole 20 MG capsule 20 mg PO DAILY lisinopril 40 MG tablet 40 mg PO DAILY Primary Care Provider: Luis Bolton Referrals: Luis Bolton MD [Primary Care Provider] - 3-5 Days Disposition Disposition: Home, Self Care
[2022-12-03 18:30] VITALS: RESP 18
[2022-12-03 19:58] VITALS: BP 148/76; PULSE 79; RESP 18; O2SAT 100
== END 2022-12-03 19:59 | disposition home or self-care (01) ==
PROVIDERS: Emergency Provider Emergency Medicine; PCP Family Medicine; Visit Provider Emergency Medicine
DX: R51.9 Headache, unspecified (principal); F41.9 Anxiety disorder, unspecified; I10 Essential (primary) hypertension; K21.9 Gastro-esophageal reflux disease without esophagitis; Z79.899 Other long term (current) drug therapy
CPT/HCPCS: 70450; 99282

== ENCOUNTER 2025-07-26 18:20 | Emergency (ER) | payer OTHER, SELFPAY ==
[2025-07-26 18:21] VITALS: BP 197/113; PULSE 100; RESP 18; TEMP 36.4; O2SAT 98; BMI 30.5
[2025-07-26 18:27] VITALS: BP 195/106; PULSE 95; RESP 15; O2SAT 100
[2025-07-26 19:34] LABS: Anion Gap 13 (5-15); BUN 14 mg/dL (4-19); BUN/Creat Ratio 18.5 RATIO (10-20); Calcium,Total 9.0 mg/dL (7.6-11.0); Carbon Dioxide 23.9 mmol/L (21.0-32.0); Chloride 103 mmol/L (98-108); Estimated Creatinine Clearance 119.42 ml/min (50-250); Glucose 95 mg/dL (70-99); Potassium 3.5 mmol/L (3.3-5.1)
[2025-07-26 19:42] VITALS: BP 173/99; PULSE 89; RESP 16; O2SAT 92
[2025-07-26 19:49] LABS: Mucous, Urine 0 SEEN /hpf (<or=2+)
--- NOTE | 2025-07-26 19:52 | EX.ED.DYSGE1 ---
HPI History of Present Illness Chief Complaint: Hypertension Detail of Chief Complaint: Presents because of mild midline posterior headache and elevated blood pres Informant: patient Onset/Context/Timing Onset: Today Context: - (Unknown. Elevated since yesterday.) Timing: Continuous Quality: Patient states he had a mild headache since his blood pressure was 165 syst Location: Cardiovascular Current Severity: Moderate Maximum Severity: Moderate Worsened by: Nothing Relieved by: Nothing Associated Symptoms Associated Symptoms: Headache only Narrative Narrative: Patient is 60-year-old male. Has history of hypertension, hypercholesterolemia and GERD. He is presently on lisinopril 40 mg a day. He has not had his medication dose change recently. He is not been compliant with his diet. He apparently had a salty meal of his weekend. Today he developed a midline somewhat posterior head discomfort. Assessed his blood pressure was noted be 165 systolic and diastolic he believes in the 90s. He repeated this in an hour and his blood pressure was 195/110. He denies double vision, blurred vision loss of vision. He denies decreased hearing. He has chronic tinnitus. He denies trouble with speech or swallowing. He denies paresthesia, anesthesia or motor weakness upper or lower extremity. He denies cardiac or respiratory symptoms. He denies abdominal pain, nausea, vomiting or diarrhea. He denies back pain of any type. He denies problems with coordination or balance. Prior similar symptoms: Yes Recent Illness/Hospitalization: No PFSH PFSH Medical History Left inguinal hernia Acid reflux Constipation Hypertension Arthritis Back problem Medical History unable to obtain Home Medications Medication Instructions Recorded Last Taken Type lisinopril 40 mg tablet 40 mg PO DAILY 07/10/15 09/07/20 06:00 History omeprazole 20 mg capsule,delayed 20 mg PO DAILY 07/10/15 09/07/20 06:00 History release Allergy/AdvReac Type Severity Reaction Status Date / Time No Known Allergies Allergy Verified 07/26/25 18:22 Family History Mother Breast cancer Family History no significant family his Surgical History History of left inguinal hernia repair (~09/2020) Hx of lithotripsy Hx of appendectomy Surgical History unable to obtain Social History Smoking Status: Never smoker second hand exposure: No alcohol intake: current alcohol intake frequency: holidays/special occasions only substance use type: does not use caffeine: Yes ROS ROS ED Constitutional Constitutional ED: Denies chills, fever(s) or subjective Eyes Eyes: Denies blurry vision, change in vision or diplopia ENT ENT ED: Denies ear pain or rhinorrhea Cardiovascular Cardiovascular: Denies chest pain or palpitations Respiratory/Chest Respiratory/Chest: Denies cough, dyspnea or dyspnea on exertion Gastrointestinal Gastrointestinal: Denies abdominal pain, nausea or vomiting Musculoskeletal Musculoskeletal: Denies arthralgias, back pain or myalgias Integumentary Denies rash Neurologic Neurologic: Reports headache(s); Denies paresthesias or weakness Endocrine Endocrinology: Denies cold intolerance or heat intolerance Hematologic/Lymphatic Hematologic/Lymphatic: Reports systems reviewed and no addt'l complaints, except as documented EXAM Physical Exam Const Vital Signs: 07/26/25 18:21 07/26/25 18:27 07/26/25 18:27 Temperature 97.6 F L Temperature Source Temporal Pulse Rate 100 95 Respiratory Rate 18 15 Respiratory Effort Normal Respiratory Pattern Normal Blood Pressure 197/113 H 195/106 H Blood Pressure Mean 141 135 Pulse Ox 98 100 Oxygen Delivery Method Room Air 07/26/25 19:42 07/26/25 19:42 07/26/25 20:00 Temperature Temperature Source Pulse Rate 89 87 Respiratory Rate 16 12 Respiratory Effort Respiratory Pattern Blood Pressure 173/99 H 162/95 H Blood Pressure Mean 123 117 Pulse Ox 92 97 Oxygen Delivery Method Room Air Positive well nourished and well developed Constitutional Narrative: Initial blood pressure 197/113. Repeat within 10 minutes was 185 1/6. Order was placed to repeat and was 173/99. General Appearance ED: well developed and NAD; Negative for pallor HEENT Reports moist mucous membranes HEENT Narrative: Patient's cup-to-disc ratio is slightly enlarged. There is no papilledema. Ears normal. TMs normal. Nares patent. Uvula midline. No deviation tongue protrusion. Eyes PERRL and EOMs intact bilaterally Eyes Narrative: Funduscopic exam documented under the HEENT portion of the medical record. There is no nystagmus. General Eye ED: Negative for pale conjunctiva or scleral icterus Neck no lymphadenopathy, supple and no JVD Chest Wall inspection of chest normal and palpation of chest normal Resp normal respiratory effort and clear to auscultation bilaterally Cardio regular rate, regular rhythm, S1 normal heart sound, S2 normal heart sound and no murmurs GI GI Narrative: There is no palp pulsatile mass or abdominal bruit. There is no tenderness. Palpation: soft Extremity normal to inspection Extremity Narrative: Distal pulses are 2+ and symmetric. General Extremety ED: Negative for edema or tenderness General Extremity: Negative for edema Neuro oriented x3, CN's II-XII intact bilaterally and no sensory deficits noted Neuro Narrative: There is no dysmetria. There is no clonus or Babinski sign noted bilaterally. Sensorium / Orientation: alert Motor Exam: strength 5/5 throughout Psych mental status grossly normal Skin no rashes or lesions noted, no wounds and skin turgor normal General Skin Exam: elasticity normal; Negative for jaundice or pallor MDM MDM MDM Narrative Medical decision making narrative: Patient with mild headache and normal neurologic exam. Will obtain BMP UA to assess for any endorgan dysfunction. Will monitor and reassess. History & Record Review Additional record(s) reviewed:: Prior outpatient record (Patient saw Dr. Reggie Saldaña for left inguinal hernia September 2020. Also for reflux August 2020.), Prior ED visit (Seen in the ER December 03, [address] Liset Simmons for anxiety.) and Prior labs Lab Data Attestation: I reviewed the patient's lab results. Lab results narrative: BMP is normal. Urine reveals no proteinuria or hematuria. Most recent blood pressure is 162/95. Patient has some slight head discomfort. With him have a normal neurologic exam 1 would not expect a blood pressure of 162 to cause him to have a headache. Since he has no concern for OK, dissection, congestive heart failure, stroke or kidney dysfunction there is no indication for emergent lowering of his blood pressure. Therefore we will discharge to home have him follow-up in 1 to 2 weeks and have his blood pressure reassessed by his doctor. Labs: Laboratory Results - last 24 hr 07/26/25 07/26/25 17:41 19:02 Sodium 140 Potassium 3.5 Chloride 103 Carbon Dioxide 23.9 Anion Gap 13 BUN 14 Creatinine 0.77 Estim Creat Clear Calc 119.42 Est GFR (MDRD) Non-Af 101 BUN/Creatinine Ratio 18.5 Glucose 95 Calcium 9.0 Urine Color Straw Urine Clarity Clear Urine pH 7.0 Ur Specific [place] 1.005 Urine Protein Negative Urine Glucose (UA) Normal Urine Ketones Negative Urine Occult Blood Negative Urine Nitrite Negative Urine Bilirubin Negative Urine Urobilinogen Normal Ur Leukocyte Esterase Negative Urine RBC 0-5 SEEN Urine WBC 0-5 SEEN Ur Squamous Epith Cells 0-5 SEEN Urine Bacteria 0 SEEN Urine Mucus 0 SEEN Discharge Plan Triage Chief Complaint: Hypertension Other Complaint: Headache ED Provider: Remington Rehman Dx/Rx/DC Orders Clinical Impression: Accelerated essential hypertension, Head pain Instructions: ED Hypertension, Established Prescriptions: No Action omeprazole 20 MG capsule 20 mg PO DAILY lisinopril 40 MG tablet 40 mg PO DAILY Primary Care Provider: Luis Bolton Referrals: Luis Bolton MD [Primary Care Provider, Family Practice] - 1-2 Weeks Activity Restrictions/Additional Instructions: 1. Need to be compliant with your diet. 2. Contact Dr. Bolton's office for visit and blood pressure recheck in 1 to 2 weeks Print Language: [place]i Disposition Disposition: Home, Self Care
[2025-07-26 20:00] VITALS: BP 162/95; PULSE 87; RESP 12; O2SAT 97
[2025-07-26 20:12] LABS: Color, Urine Straw (Yellow); Glucose, Dipstick Normal (Normal); Ketone-Dipstick Negative (Negative); Leukocyte Esterase-Dipstick Negative /ul (Negative); Nitrite-Dipstick Negative (Negative); Occult Blood-Urine Negative /ul (Negative); Protein-Dipstick Negative (Negative); Specific Gravity, Urine 1.005 (1.002-1.030); Urine Bilirubin Dipstick Negative (Negative)
[2025-07-26 20:41] LABS: Red Blood Cells-Urine 0-5 SEEN /hpf (0-5); Squamous Epithelial Cells - UA 0-5 SEEN /hpf (0-5)
[2025-07-26 21:20] VITALS: BP 149/93; PULSE 90; RESP 16; TEMP 36.6; O2SAT 98
[2025-07-26 21:24] VITALS: BP 162/94; PULSE 71; RESP 16; TEMP 36.6; O2SAT 97
== END 2025-07-26 21:23 | disposition home or self-care (01) ==
PROVIDERS: Emergency Provider Emergency Medicine; PCP Family Medicine; Visit Provider Emergency Medicine
DX: I10 Essential (primary) hypertension (principal); R51.9 Headache, unspecified; K21.9 Gastro-esophageal reflux disease without esophagitis; E78.00 Pure hypercholesterolemia, unspecified; Z79.899 Other long term (current) drug therapy; Z91.119 Patient's noncompliance with dietary regimen due to unspecified reason
CPT/HCPCS: 80048; 81001; 99284